=== PATIENT | male | born 1985 | race Caucasian/White ===

== ENCOUNTER 2019-08-04 00:15 | Emergency (ER) | payer BC ==
[2019-08-04 00:29] VITALS: BP 149/94
--- NOTE | 2019-08-04 00:35 | ERPHSYRPT ---
- History of Present Illness Time Seen by Provider: 08/04/19 00:30 Source: patient Exam Limitations: no limitations Patient Subjective Stated Complaint: pt is alert and oriented. pt comes in with c/o left ankle injury. pt states that he was getting out of bed and stepped on a toy and his ankle cracked and her felt instant pain. pt has obvious swelling to his left ankle. elevated ankle and applied ice packs. pedal pulse strong. warm to touch. cap refil <3 secs. Triage Nursing Assessment: see above Physician History: Up with baby in his arms, stepped on a toy and fell - no injury to baby but heard or felt something snap in Left ankle. No other injuries; no loss of consciousness. Reason for Fall: tripped (toys on floor at night), fell from standing pos Injuries/Pain Location: lower extremity (left ankle) Loss of Consciousness: no loss of consciousness Severity of Pain-Max: moderate Severity of Pain-Current: moderate Allergies/Adverse Reactions: No Known Drug Allergies Allergy (Unverified 08/04/19 00:29) Home Medications: Lansoprazole [Prevacid] 15 mg PO DAILY 08/04/19 [History] Immunizations Up to Date: Yes - Review of Systems Constitutional: No Symptoms Musculoskeletal: Injury (left ankle) Skin: No Symptoms - Past Medical History Pertinent Past Medical History: No Neurological History: No Pertinent History Musculoskeletal History: No Pertinent History Psycho-Social History: No Pertinent History - Past Surgical History Past Surgical History: No - Social History Smoking Status: Never smoker Drug Use: none - Nursing Vital Signs Nursing Vital Signs: Initial Vital Signs Temperature 99.7 F 08/04/19 00:24 Pulse Rate 113 H 08/04/19 00:24 Respiratory Rate 18 08/04/19 00:24 Blood Pressure 149/94 08/04/19 00:24 O2 Sat by Pulse Oximetry 98 08/04/19 00:24 Pain Scale Pain Intensity 6 - Wesley Coma Score Best Eye Response (Wesley): (4) open spontaneously Best Verbal Response (Diann): (5) oriented Best Motor Response (Diann): (6) obeys commands Diann Total: 15 - Physical Exam General Appearance: no apparent distress Head Injury: no evidence of injury ENT Exam: airway nml Neck Exam: supple, normal inspection Respiratory/Chest Exam: chest tenderness, normal breath sounds Cardiovascular Exam: normal heart sounds, regular rate/rhythm Extremity Exam: normal inspection (Except swelling lateral L ankle ), pain with movement (left ankle) Neurologic Exam: alert, oriented x 3, cooperative Skin Exam: normal color, warm, dry SpO2 Interpretation: normal SpO2: 98 O2 Delivery: Room Air - Course Nursing assessment & vital signs reviewed: Yes - Radiology Exams Ankle X-ray Interpretation: Interpreted by me, Displaced Fracture (Left distal fibula ) Ordered Tests: Active Orders 24 hr Category Date Time Status Crutches STAT Care 08/04/19 02:18 Active Splint STAT Care 08/04/19 00:56 Active ANKLE (3 VIEWS) Stat Exams 08/04/19 00:54 Taken Medication Summary Discontinued Medications Generic Name Dose Route Start Last Admin Trade Name Freq PRN Reason Stop Dose Admin Hydrocodone Bitart/Acetaminophen 2 tab 08/04/19 02:28 08/04/19 02:42 [place] 7.5/325 Mg Tab PO 08/09/19 02:27 2 tab Q4H PRN PRN Administration PAIN Hydrocodone Bitart/Acetaminophen Confirm 08/04/19 02:40 [place] 7.5/325 Mg Tab Administered 08/04/19 02:41 Dose 2 tab .ROUTE .[facility] - Progress Progress Note: 08/04/19 01:01 Discussed fracture L fibula/ankle with patient. He drove himself to ER and would like to not have anything preventing him from driving himself back home. He was advised that he also would be on crutches. - Departure Departure Disposition: Home Clinical Impression: Fracture of fibula, distal Qualifiers: Encounter type: initial encounter Fracture type: closed Fracture morphology: unspecified fracture morphology Laterality: left Qualified Code(s): S82.832A - Other fracture of upper and lower end of left fibula, initial encounter for closed fracture Condition: Stable Critical Care Time: No Referrals: DOCTOR,NO FAMILY [Primary Care Provider] - Instructions: Ankle Fracture (DC) Additional Instructions: Crutches; elevate leg tonight and tomorrow when able - cold to area regularly to reduce swelling. Follow up with orthopedics next week. Prescriptions: Hydrocodone/Acetaminophen [[place] 7.5-325 Tablet] 1 each PO Q6H PRN PRN #14 tablet MDD 4 PRN Reason: Pain
[2019-08-04] MEDS ORDERED: NORCO 7.5/325 MG TAB PO PRN (02:28)
[2019-08-04 02:33] VITALS: PULSE 64
[2019-08-04] MEDS ORDERED: NORCO 7.5/325 MG TAB ONE (02:40)
[2019-08-04 03:15] VITALS: O2SAT 98
--- NOTE | 2019-08-04 07:37 | XRAY ---
Indication: Pain/swelling following fall. Comparison: None 3 views of the left ankle demonstrates mildly displaced lateral malleolus fracture, nondisplaced posterior malleolus fracture, and soft tissue swelling. Talus also mildly subluxed laterally. No other bony, articular, or soft tissue abnormalities.
== END 2019-08-04 02:58 | disposition home or self-care (01) ==
LOC: ED 00:15
DX: S82.832A Other fracture of upper and lower end of left fibula, initial encounter for closed fracture (principal); X50.0XXA Overexertion from strenuous movement or load, initial encounter; M25.572 Pain in left ankle and joints of left foot
CPT/HCPCS: 29515; 73610; 99284; A9270-GY